=== PATIENT | female | born 1965 ===

== ENCOUNTER 2018-06-03 22:11 | Inpatient (IN) ==
[2018-06-04 01:58] LABS: Calcium 8.7 MG/DL (8.5-10.1); Osmolality,Calculated 309.8 MOS/KG (273-304)
[2018-06-04 02:02] LABS: Potassium 7.1 MMOL/L (3.5-5.1)
[2018-06-04] MEDS: SODIUM POLYSTYRENE SULFATE 15 GM/60 ML BOTTLE PO PRN ×3 (02:10→17:08)
[2018-06-04] MEDS: CARVEDILOL 6.25 MG TABLET PO SCH ×2 (09:45→20:46)
[2018-06-04] MEDS: INSULIN LISPRO 100 UNIT/ML SUBCUT SCH (20:46)
[2018-06-05 05:25] LABS: Basophils # 0.1 10*3/uL (0.0-0.2); Basophils % 0.7 % (0.0-0.8); Eosinophils # 0.2 10*3/uL (0.0-0.87); Eosinophils % 2.7 % (0.00-10.9); Hematocrit 34.3 VOL% (35.7-47.0); Hemoglobin 10.8 GM/DL (12.0-16.0); Lymphocytes # 1.1 10*3/uL (1.4-4.0); Lymphocytes % 15.4 % (21.3-54.2); Mean Corpuscular HGB Conc 31.5 GM/DL (32-36); Mean Corpuscular Hemoglobin 34 PG (27-34); Mean Corpuscular Volume 107.2 FL (87-102); Mean Platelet Volume 10.3 FL (9.6-12.0); Monocytes # 0.5 10*3/uL (0.11-0.8); Monocytes % 6.9 % (1.7-12.7); NRBC # 0.19 10*3/uL; Neutrophils # 5.2 10*3/uL (1.4-7.4); Neutrophils % 70.3 % (38.7-73.9); Platelet Count 129 T/CUMM (130-400); Red Cell Distribution Width 15.6 % (9.3-17.3); White Blood Count 7.4 T/CUMM (4-12)
[2018-06-05 05:52] LABS: Calcium 7.9 MG/DL (8.5-10.1); Osmolality,Calculated 312.3 MOS/KG (273-304); Potassium 5.4 MMOL/L (3.5-5.1)
[2018-06-05] MEDS: CARVEDILOL 6.25 MG TABLET PO SCH (08:40)
[2018-06-05] MEDS: INSULIN LISPRO 100 UNIT/ML SUBCUT SCH ×3 (08:40→16:38)
[2018-06-05] MEDS: CALCIUM ACETATE 667 MG CAPSULE PO SCH ×2 (13:24→16:38)
[2018-06-05 15:49] VITALS: BP 153/94
== END 2018-06-05 18:49 | disposition home or self-care (01) | DRG 640 ==
LOC: N.TELEN 23:38 → SUATTDRO 23:38
PROVIDERS: ADMIT Internal Medicine; ATTEND Internal Medicine